=== PATIENT | female | born 1970 | race Hispanic/Latino ===

== ENCOUNTER 2024-04-03 09:09 | Emergency (ER) | payer OTHER ==
[~2024-04-03] VITALS: Ht 157.5 cm; Wt 49.9 kg
[2024-04-03 12:06] VITALS: BP 108/71; PULSE 79; RESP 18; O2SAT 99
== END 2024-04-03 12:09 | disposition home or self-care (01) ==
LOC: EDH 09:09
DX: M54.2 Cervicalgia (principal); Z88.2 Allergy status to sulfonamides; Z98.890 Other specified postprocedural states
CPT/HCPCS: 70450; 72125

== ENCOUNTER 2025-04-02 13:45 | Emergency (ER) | payer SELFPAY ==
[~2025-04-02] VITALS: Ht 160 cm; Wt 52.2 kg
[2025-04-02 14:13] LABS: IMMATURE GRANULOCYTE ABSOLUTE 0.05 K/uL (0-1); NUCLEATED RED BLOOD CELLS 0.0 % (0.0-0.19); PLATELET COUNT (AUTO) 394 K/uL (130-400); RED BLOOD CELL COUNT(AUTO) 4.82 MIL/uL (4.00-5.50); RED CELL DISTRIBUTION WIDTH 13.2 % (11.0-15.5); WHITE BLOOD COUNT (AUTO) 12.3 K/uL (4.8-10.8)
[2025-04-02 14:22] LABS: INR 0.95 (0.85-1.15)
[2025-04-02 14:23] LABS: CREATININE 0.7 mg/dL (0.5-1.0); GLOMERULAR FILTR. RATE CALC 104.0 mL/min (>90); GLUCOSE,RANDOM 94.0 mg/dL (70-105); SODIUM SERUM 141.0 mmol/L (136-145); UREA NITROGEN, BLOOD 16.0 mg/dL (7-18)
[2025-04-02 15:20] LABS: GLUCOSE, URINE (UA) NEGATIVE (NEGATIVE); LEUKOCYTE ESTERASE ,URINE 500 Leu/uL (NEGATIVE); NITRATE,URINE NEGATIVE (NEGATIVE); OCCULT BLOOD,URINE MODERATE (NEGATIVE)
[2025-04-02 15:21] LABS: ADD UA MICROSCOPIC YES; APPEARANCE,URINE HAZY (CLEAR)
[2025-04-02 15:27] LABS: SQUAMOUS EPITHELIAL CELL,UR RARE /HPF (0-2)
[2025-04-02] MEDS ORDERED: DOXY100T2 PO (17:05)
--- NOTE | 2025-04-02 17:05 | HMCIMG ---
EXAM: US Pelvis, Complete Transvaginal and Transabdominal COMPARISON: None provided. CLINICAL HISTORY: vaginal discharge/vaginal bleeding TECHNIQUE: Transvaginal and transabdominal pelvic ultrasound (complete) with image documentation. FINDINGS: ENDOMETRIUM: Normal thickness. UTERUS/CERVIX: Uterus measures 10.8 x 2.6 x 5.0 cm. There is a fibroid within the anterior fundus measuring 2.3 x 1.9 x 2.5 cm. Endometrial stripe measures 1 mm. RIGHT OVARY: Normal Doppler flow. No abnormal mass. 1.5 x 1.0 x 1.5 cm LEFT OVARY: Normal Doppler flow. No abnormal mass. 1.5 x 1.1 x 1.2 cm. FREE FLUID: No free fluid. IMPRESSION: Uterine fibroid measuring up to 2.5 cm in maximum diameter within the anterior fundus. No acute pelvis process. /[place]
--- NOTE | 2025-04-02 17:18 | ERN ---
General Chief Complaint: Vaginal Problems/Bleeding Stated Complaint: VAG BLEED Time Seen by MD: 13:50 Time Seen by Midlevel: 13:50 Source: patient History of Present Illness Initial Comments Patient is a 54-year-old female presenting to the emergency department after she had one episode of vaginal bleeding with clots. She also reports noticing green vaginal discharge. She is slightly concern for a possible STI. She was seen in [place] earlier today where she had a Pap smear performed and had STI testing however she has not received any results. She became concerned when she developed generalized body aches and chills. She denies any fever or any other symptoms at this time. Allergies: Coded Allergies: sulfamethizole (Unverified Allergy, Severe, SHORTNESS OF BREATH, 04/03/24) sulfamethoxazole (Unverified Allergy, Unknown, 04/02/25) trimethoprim (Unverified Allergy, Unknown, 04/02/25) Past Medical History Past Medical History: No Pertinent History Past Surgical History: None Surgical History Other: PARTIAL THYROIDECTOMY, BREAST AUGMENTAION ROS Dictation CONSTITUTIONAL: Negative except for HPI HEAD/FACE: Negative except for HPI EENT: Negative except for HPI RESPIRATORY: Negative except for HPI GASTROINTESTINAL/ABDOMINAL: Negative except for HPI GENITOURINARY: Negative except for HPI MUSCULOSKELETAL: Negative except for HPI INTEGUMENTARY: Negative except for HPI NEUROLOGICAL/PSYCH: Negative except for HPI HEMATOLOGIC/LYMPHATIC: Negative except for HPI All Systems Negative, Except as noted above. 13 point review of systems assessed and all negative except for above. Physical Exam Physical Exam Dictation Vital Signs reviewed General Appearance: Alert, oriented x 3, no acute distress, well developed, nourished. Head and Face: non-traumatic. Eyes: PERRL, pink conjunctivas, eyelid no trauma, anterior chamber with arcus senilis. Ears: Pinnas intact and no signs of trauma or erythema ear canals clear and no discharge TM no erythema Nose: No discharge, no bleeding. Oropharynx: Mouth normal, tongue pink, pharynx clear,no erythema, tonsils no exudates, no abscesses noted, mucous membrane moist Neck: Supple, non-tender, no thyromegaly, no masses, no JVD, no bruits Breast:Deferred Chest:No tenderness, no crepitus, no paradoxical movement, no retractions Lungs:Clear, well-ventilated, symmetric, no rales, no wheezing, no rhonchi, no stridor, good breath sounds bilaterally Heart: Regular rate, regular rhythm, no murmur, no gallops Vascular: no peripheral edema, Abdomen: Soft, positive bowel sounds, nondistended, no guarding, nontender, no rebound, no masses no hepatomegaly, no splenomegaly, no Abad's sign, no hernias. Rectal: Deferred Genital: Deferred Neurological: Normal speech, motor function intact, sensory function intact Musculoskeletal: Neck nontender, full range of motion, back nontender, full range of motion, Extremities: nontender, full range of motion Skin: Color pink, dry, no turgor, no rash, no lacerations, no abrasions, no contusions. Lymphatic: Deferred Results Laboratory and Microbiology Lab and Micro Result Laboratory Tests Test 04/02/25 14:05 04/02/25 15:13 White Blood Count 12.3 K/uL (4.8-10.8) H Red Blood Count 4.82 MIL/uL (4.00-5.50) Hemoglobin 14.2 g/dL (12.0-16.0) Hematocrit 42.8 % (36-48) Mean Corpuscular Volume 88.8 fL (79-99) Mean Corpuscular Hemoglobin 29.5 pg (27.0-33.0) Mean Corpuscular Hemoglobin Concent 33.2 g/dL (32.0-36.0) Red Cell Distribution Width 13.2 % (11.0-15.5) Platelet Count 394 K/uL (130-400) Mean Platelet Volume 9.3 fL (7.5-10.5) Immature Granulocyte % (Auto) 0.4 % (0-1) Neutrophils (%) (Auto) 65.6 % (40.0-77.0) Lymphocytes (%) (Auto) 26.4 % (21.0-51.0) Monocytes (%) (Auto) 5.8 % (3.0-13.0) Eosinophils (%) (Auto) 1.4 % (0.0-8.0) Basophils (%) (Auto) 0.4 % (0.0-5.0) Neutrophils # (Auto) 8.1 K/uL (1.8-7.7) H Lymphocytes # (Auto) 3.3 K/uL (1.0-4.8) Monocytes # (Auto) 0.7 K/uL (0.1-1.0) Eosinophils # (Auto) 0.17 K/uL (0.00-0.70) Basophils # (Auto) 0.05 K/uL (0.00-0.20) Absolute Immature Granulocyte (auto 0.05 K/uL (0-1) Nucleated Red Blood Cells 0.0 % (0.0-0.19) Prothrombin Time 10.1 SEC (9.6-11.6) Prothromb Time International Ratio 0.95 (0.85-1.15) Activated Partial Thromboplast Time 29.1 SEC (26.3-35.5) Sodium Level 141 mmol/L (136-145) Potassium Level 4.2 mmol/L (3.5-5.1) Chloride Level 105 mmol/L (101-111) Carbon Dioxide Level 29 mmol/L (21-32) Blood Urea Nitrogen 16 mg/dL (7-18) Creatinine 0.7 mg/dL (0.5-1.0) Glomerular Filtration Rate Calc 104 mL/min (>90) Random Glucose 94 mg/dL (70-105) Total Calcium 9.1 mg/dL (8.5-10.1) Serum Test, Qualitative NEGATIVE (NEGATIVE) Urine Color YELLOW (YELLOW) Urine Appearance HAZY (CLEAR) Urine pH 8.0 (5.0-8.0) Urine Specific [place] 1.014 (1.001-1.031) Urine Protein 50 mg/dL (NEGATIVE) H Urine Glucose (UA) NEGATIVE mg/dL (NEGATIVE) Urine Ketones NEGATIVE mg/dL (NEGATIVE) Urine Occult Blood MODERATE (NEGATIVE) H Urine Nitrate NEGATIVE (NEGATIVE) Urine Bilirubin NEGATIVE mg/dL (NEGATIVE) Urine Urobilinogen 0.2 mg/dL (0.2-1.0) Urine Leukocyte Esterase 500 Ana/uL (NEGATIVE) H Urine RBC 51-100 /HPF (0-1) H Urine WBC TNTC /HPF (0-1) H Urine Squamous Epithelial Cells RARE /HPF (0-2) Urine Bacteria FEW /HPF (None Seen) Labs Reviewed?: Yes MDM MDM: Differential diagnosis: , urinary tract infection, dehydration, electrolyte abnormality There are no social concerns with this patient. Prescription drug management Prescriptions will include: Doxycycline Medical management and examination interpretation discussions were had by me with other qualified healthcare professionals as indicated for the patient's care. ED Course Orders Procedure Category Date Status Time Cbc With Differential LAB 04/02/25 Complete 13:54 Basic Metabolic Panel LAB 04/02/25 Complete 13:54 Testing, LAB 04/02/25 Complete Serum Hcg 13:54 Type And Screen BBK 04/02/25 Complete 13:54 Urinalysis Profile LAB 04/02/25 Complete 13:54 Pt And Ptt LAB 04/02/25 Complete 13:54 Culture Urine ZULEMA 04/02/25 In Process 15:21 Ceftriaxone 1g Vial PHA 04/02/25 Complete (Rocephine 1g Inj) 16:00 Chlamydia & Gc Pcr ZULEMA 04/02/25 Logged 15:40 Us Pelvic Non-Ob US 04/02/25 Taken Limited 15:40 Current Medications Medications (Trade) Dose Ordered Sig/Agus Route PRN Reason Start Time Stop Time Status Last Admin Dose Admin Ceftriaxone Sodium (ROCEphine 1G INJ) 1 gm ONCE ONCE IM 04/02/25 16:00 04/02/25 16:01 DC 04/02/25 16:08 Vital Signs Date Time Temp Pulse Resp B/P (MAP) Pulse Ox O2 Delivery O2 Flow Rate FiO2 04/02/25 15:43 97.0 80 18 105/72 98 Room Air* 0 21 04/02/25 13:47 97.0 84 18 102/74 98 DX & DISP Disposition: Discharge Departure Impression: Primary Impression: Urinary tract infection Condition: Stable Scripts Doxycycline Hyclate (Doxycycline Hyclate) 100 Mg Tablet 1 TAB PO BID for 7 Days, #14 TAB 0 Refills Prov: CELIA SELBY 04/02/25 Additional Instructions: Your blood work today is stable. Your urinalysis is consistent with infection. Your pelvic ultrasound reveals normal ovaries. There is a single uterine fibroid measuring 2.5 cm however the remainder of your pelvic ultrasound is normal. Given that you had a concern for a possible STI we have given you a Rocephin injection in the emergency department and will discharge you home with a prescription for doxycycline. Please follow up with your primary care doctor in 2-3 days for repeat evaluation Referrals: SELF,REFERRAL (PCP) Time of Disposition: 17:07 I have reviewed the case, and I agree with, Diagnosis and Plan I performed the substantive portion of the visit. I have reviewed and personally made and approve the management plan that is documented in the note by myself or the JERRY. I acknowledge for responsibility for the patient's ma nagement plan. CELIA SELBY Apr 02, 2025 17:18
[2025-04-02 17:19] VITALS: BP 115/72; PULSE 76; RESP 18; TEMP 97.9; O2SAT 98
== END 2025-04-02 17:23 | disposition home or self-care (01) ==
LOC: EDH 13:45
DX: N39.0 Urinary tract infection, site not specified (principal); Z88.1 Allergy status to other antibiotic agents; Z88.2 Allergy status to sulfonamides
CPT/HCPCS: 99285; 76857; 80048; 84703; 85025; 85610; 85730; 86850; 86900; 86901; 87086 ×2; 87186; 87491; 87591; 81001; 36415; 96372; J0696